=== PATIENT | female | born 2000 | race African-American/Black ===

== ENCOUNTER 2024-04-16 21:57 | Emergency (ER) | payer BC, SELFPAY ==
[2024-04-16 22:11] VITALS: BP 138/79; PULSE 68; TEMP 36.8; O2SAT 99; BMI 19.5
--- NOTE | 2024-04-16 22:22 | PC.NURSE ---
Pt presents to ER for right upper wisdom tooth pain pt states the tooth has been bad and mildly painful for a month, but 4 days ago it became worse and she can no longer take it Pt's parents at bedside state the pt is often crying in pain and is not eating much Pt states she has been using Tylenol, Motrin, and Orajel which help slightly but does not take the pain away Pt states she has made numerous dental appointments at different places to try to get in sooner but she believes the first available time for removal is a month away
--- NOTE | 2024-04-16 22:25 | ED_ITS ---
HPI - Dental/Oral General Chief complaint: Dental/Oral Stated complaint: DENTAL PAIN Time Seen by Provider: 04/16/24 22:24 Source: patient Mode of arrival: walk-in Limitations: no limitations History of Present Illness HPI Narrative: This 23-year-old female presents for evaluation of right posterior wisdom tooth pain. She has a cavity in her posterior upper wisdom tooth causing her a great deal of pain. She called her parents crying this evening and they drove from [place] to pick her up and bring her to the emergency department. The pain has been ongoing for the past 4 days. She has called multiple dentists but cannot get in for at least 10 to 12 days. She has not had a fever. She has pain when anything touches her tooth. It has been broken for a period of time. She denies any difficulty breathing or swallowing. Her father states that she has not been able to sleep or go to work due to the pain in her mouth. Location: Tooth # (1) Related Data Allergies Allergy/AdvReac Type Severity Reaction Status Date / Time No Known Drug Allergies Allergy Verified 04/16/24 22:16 Review of Systems ROS Status of ROS 10 or more systems reviewed and unremark able except as noted in history and below Exam Narrative Exam Narrative: Vital signs and Nursing Notes reviewed: She is afebrile with a normal pulse, blood pressure is minimally elevated at 138/79, she is not hypoxic with pulse ox of 99% on room air General: Awake, alert, oriented, nontoxic but tearful at times, no respiratory distress HEENT: Normocephalic atraumatic, mucous membranes are moist and pink, tooth #1 has a visible cavity and is broken on the medial aspect of the tooth. There is no notable periapical abscess. There is no sign of necrotizing gingivitis. There is no notable gingival swelling or redness. Neck: Supple, no meningeal signs, no anterior or posterior cervical lymphadenopathy Chest: Lungs are clear to auscultation with good air entry, there is no wheezing rhonchi or rales appreciated no accessory muscle use, patient is speaking in complete sentences-no chest wall tenderness to palpation CVS: Regular rate and rhythm S1-S2, no murmurs rubs or gallops, pulses are brisk and equal bilaterally Skin: Normal in appearance without rash,pallor, petechiae or purpura Neuro: No focal deficits Constitutional Vital Signs, click to edit/add: Last Vital Signs Temp 98.3 F 04/16/24 22:11 Pulse 68 04/16/24 22:11 Resp 16 04/16/24 22:11 BP 138/79 04/16/24 22:11 Pulse Ox 99 04/16/24 22:11 O2 Del Method Room Air 04/16/24 22:11 Course Vital Signs Vital signs: Vital Signs Temperature 98.3 F 04/16/24 22:11 Pulse Rate 68 04/16/24 22:11 Respiratory Rate 16 04/16/24 22:11 Blood Pressure 138/79 04/16/24 22:11 Pulse Oximetry 99 04/16/24 22:11 Oxygen Delivery Method Room Air 04/16/24 22:11 Temperature 98.3 F 04/16/24 22:11 Pulse Rate 68 04/16/24 22:11 Respiratory Rate 16 04/16/24 22:11 Blood Pressure 138/79 04/16/24 22:11 Pulse Oximetry 99 04/16/24 22:11 Oxygen Delivery Method Room Air 04/16/24 22:11 MDM - Dental/Oral MDM Narrative Medical decision making narrative: This otherwise healthy 23-year-old female presents for evaluation of 4 days of right upper posterior molar, tooth #1, pain. She has a broken wisdom tooth with a visible cavity and it. There has been no local injury to the mouth. She stat es it has been broken for a period of time but the cavity is new. She has called multiple dentist but cannot get in for several weeks. She called her parents to bring her to the emergency department due to her pain. Her vital signs are stable. She was medicated in the emergency department with a [place], Zofran, amoxicillin and dental analgesia. I did review her [facility] report and there is no activity reported. She will be discharged home with a prescription for Zofran, amoxicillin and [place]. I encouraged her to continue calling dentist to try to get in for a cancellation or other available appointment. Discharge Plan Discharge Stand Alone Forms: Portal Instructions Chief Complaint: Dental/Oral Clinical Impression: Toothache, Fracture of tooth Patient Disposition: Home, Self-Care Time of Disposition Decision: 22:32 Condition: Good Print Language: Lithuanian Instructions: Toothache (ED), Tooth Extraction (DC) Referrals: [facility] [Primary Care Provider] - 1 week
[2024-04-16] MEDS: HYDROCODONE/ACET 5-325 MG TABLET 1 TAB PO (22:58)
[2024-04-16] MEDS: AMOXICILLIN 500 MG CAPSULE PO (22:58)
[2024-04-16] MEDS: ONDANSETRON 4 MG RAPDIS TABLET SL (22:58)
[2024-04-16] MEDS: BENZOCAINE 30 ML, lidocaine HCL 15 ML MM (23:00)
== END 2024-04-16 23:04 | disposition home or self-care (01) ==
PROVIDERS: Emergency Provider Emergency Medicine; PCP Family Medicine
DX: K08.89 Other specified disorders of teeth and supporting structures (principal); S02.5XXA Fracture of tooth (traumatic), initial encounter for closed fracture
CPT/HCPCS: 99284